=== PATIENT | female | born 1995 | race Two or more races ===

== ENCOUNTER 2025-04-01 19:43 | Emergency (ER) | payer SELFPAY ==
[~2025-04-01] VITALS: Ht 167.6 cm; Wt 94.4 kg
[2025-04-01 19:49] VITALS: BP 122/86; PULSE 89; RESP 20; TEMP 98.6; O2SAT 99
== END 2025-04-01 21:47 | disposition left against medical advice (07) ==
LOC: ER 19:43 → EDBD 19:43 → ER 21:47
DX: T78.40XA Allergy, unspecified, initial encounter (principal); Z53.21 Procedure and treatment not carried out due to patient leaving prior to being seen by health care provider; X58.XXXA Exposure to other specified factors, initial encounter